=== PATIENT | female | born 1985 | race Caucasian/White ===

== ENCOUNTER 2021-05-23 17:47 | Emergency (ER) | payer BC ==
[2021-05-23] MEDS ORDERED: Sodium Chloride 0.9% 10 ML Syringe FLUSH PRN (18:19)
[2021-05-23] MEDS ORDERED: Iopamidol 612 MG/ML 100 ML Bottle IVPUSH STA (18:21)
[2021-05-23] MEDS ORDERED: Iopamidol 612 MG/ML 100 ML Bottle ONE (18:23)
[2021-05-23] MEDS ORDERED: Lidocaine 2% with EPINEPHrine 1:100,000 20 ML MDV INJECT ONE (18:36)
[2021-05-23] MEDS ORDERED: Lidocaine 2% with EPINEPHrine 1:100,000 20 ML MDV ONE (19:00)
[2021-05-23 19:41] LABS: CHLORIDE,CL 103 mmol/L (98-107); SODIUM,NA 138 mmol/L (136-145)
== END 2021-05-23 20:20 | disposition home or self-care (01) ==
LOC: LL.ED 17:47
DX: K04.7 Periapical abscess without sinus (principal); K02.9 Dental caries, unspecified; Z72.0 Tobacco use
CPT/HCPCS: 36415; 64400; 70491; 80048; 85025; 86140; 99284; Q9967

== ENCOUNTER 2023-02-27 11:54 | Emergency (ER) | payer BC ==
[2023-02-27] MEDS ORDERED: Lidocaine 2% with EPINEPHrine 1:100,000 20 ML MDV INJECT ONE (12:09)
[2023-02-27 12:44] VITALS: BP 147/89; PULSE 95
== END 2023-02-27 12:57 | disposition home or self-care (01) ==
LOC: LL.ED 11:54
DX: L02.211 Cutaneous abscess of abdominal wall (principal); F17.210 Nicotine dependence, cigarettes, uncomplicated
CPT/HCPCS: 10060; 87070; 87205; 99283; J3490